=== PATIENT | female | born 1995 | race Caucasian/White ===

== ENCOUNTER 2019-03-05 15:07 | Inpatient (IN) | payer OTHER ==
[~2019-03-05] VITALS: Ht 149.9 cm; Wt 90.0 kg
[~2019-03-05 15:07] MED LIST: OXYTOCIN 30 UNITS/LR 500 ML BAG IV ONE
[2019-03-05 15:25] VITALS: Ht 149.9 cm; Wt 90.0 kg
[2019-03-05] MEDS ORDERED: METHYLERGONOVINE 0.2 MG INJ IM PRN (15:30)
[2019-03-05] MEDS ORDERED: CEFAZOLIN 2 GM/50 ML (PMX) 50 ML IVPB SCH (15:30)
[2019-03-05] MEDS ORDERED: OXYTOCIN 30 UNITS/LR 500 ML IV SCH (15:30)
[2019-03-05] MEDS ORDERED: CARBOPROST 250 MCG INJ IM PRN (15:30)
[2019-03-05] MEDS ORDERED: OXYTOCIN 30 UNITS/LR 500 ML IV PRN (15:30)
[2019-03-05] MEDS ORDERED: MISOPROSTOL 200 MCG TAB PR PRN ×2 (15:30→22:30)
[2019-03-05 15:34] VITALS: BP 118/71; PULSE 111; RESP 19
[2019-03-05] MEDS: LACTATED RINGER'S 1,000 ML IV SCH ×2 (15:47→21:29)
--- NOTE | 2019-03-05 21:35 | PREAC ---
Date/Time of Note Date/Time of Note DATE: 03/05/19 TIME: 21:34 Anesthesia Eval and Record Evaluation Time Pre-Procedure Interview DATE: 03/05/19 TIME: 21:34 Age 23 Sex female NPO: 8 hrs Preoperative diagnosis IUP Planned procedure Repeat C/Section Past Medical History Past Medical History: Includes GI: Morbid obesity : : Surgery & Anesthesia Issues No known issue Meds Anticoagulation: No Beta Anamaria within 24 hr: No Reason Beta Anamaria not given: Pt. not on B-Anamaria No Active Prescriptions or Reported Meds Current Medications Lactated Ringer's 1,000 ml @ 125 mls/hr Q8H IV Last administered on 03/05/19at 21:29; Admin Dose 125 MLS/HR; Start 03/05/19 at 15:26 Cefazolin Sodium/ Dextrose 50 ml @ 100 mls/hr ONCE IVPB ; Start 03/05/19 at 15:30 Oxytocin/Lactated Ringer's 500 ml @ 125 mls/hr POST IV ; Start 03/05/19 at 15:30 Oxytocin/Lactated Ringer's 500 ml @ 0 mls/hr ONCE PRN IV .VAGINAL BLEEDING; Start 03/05/19 at 15:30 Methylergonovine Maleate (Methergine) 0.2 mg ONCE PRN IM .VAGINAL BLEEDING; Start 03/05/19 at 15:30 Carboprost Tromethamine (Hemabate) 250 mcg ONCE PRN IM .VAGINAL BLEEDING; Start 03/05/19 at 15:30 Misoprostol (Cytotec) 1,000 mcg ONCE PRN DC .VAGINAL BLEEDING; Start 03/05/19 at 15:30 Meds reviewed: Yes Allergies Coded Allergies: No Known Allergy (Unverified , 08/31/14) Allergies Reviewed: Yes Labs/Studies Labs Reviewed: Reviewed by anesthesiologist Result Diagram: 03/05/19 1545 Laboratory Tests 03/05/19 15:45 Blood Bank Test 03/05/19 15:45 Antibody Screen NEGATIVE Blood Type O POSITIVE Rh Immune Globulin Candidate NO test: Positive Studies: ECG Pre-procedure Exam Last vitals Vital Signs Date Temp Pulse Resp B/P (MAP) Pulse Ox O2 O2 Flow FiO2 Time Delivery Rate 03/05/19 97.9 111 19 118/71 15:34 (87) Airway: Adequate mouth opening, Adequate thyromental dist Mallampati: Mallampati II Teeth: Normal Lung: Normal Heart: Normal ASA Physical Status ASA physical status: 2 Emergency: None Planned Anesthetic Neuraxial: Spinal Planned Pain Management Sub-arachniod narcotics, Parenteral pain med Pre-operative Attestations Prior to commencing anesthesia and surgery, the patient was re-evaluated, there was verification of: *The patient's identity *The results of appropriate recent lab work and preoperative vital signs *The above evaluation not changing prior to induction *Anesthetic plan, risk benefits, alternative and complications discussed with patient/family; questions answered; patient/family understands, accepts and wishes to proceed. ERIC WAGNER MD Mar 05, 2019 21:35
[2019-03-05] MEDS ORDERED: OXYTOCIN 10 UNIT INJ ONE (22:05)
[2019-03-05] MEDS ORDERED: ONDANSETRON 4 MG INJ ONE (22:05)
[2019-03-05] MEDS ORDERED: morphine SULFATE/PF (10 MG/10 ML) INJ ONE (22:05)
[2019-03-05] MEDS ORDERED: LACTATED RINGER'S 1,000 ML IV SCH (22:10)
--- NOTE | 2019-03-05 22:10 | HP ---
Date/Time of Note Date/Time of Note DATE: 03/05/19 TIME: 22:08 OB - History Hx of Present Free Text/Dictation 23 YO EAB 2 with EDC 03/11/2019 with IUP at 39.1 weeks with history of previous delivery, who desires to have repeat delivery. I discussed with the patient the risks, benefits, indications, and alternatives of procedure including but not limited to risks of infection, bleeding, damage to other organs, bowel, bladder, hernia formation, scar formation, possibility of blood transfusion, possible need for emergency hysterectomy. She was allowed to ask questions. All her questions were answered. Informed consent has been obtained. Care: Good Care Ultrasounds: Normal mid trimester US Obstetrical Complications: None Medical Complications: None Past Family/Social History * Past Medical, Surgical, Family and Obstetric Histories reviewed from chart. OB Admission Exam Vital Signs Vital Signs Vital Signs Date Temp Pulse Resp B/P (MAP) Pulse Ox O2 O2 Flow FiO2 Time Delivery Rate 03/05/19 97.9 111 19 118/71 15:34 (87) Physical Exam HEENT: WNL Heart: Rhythm Normal Lungs: Clear, Equal Abdomen: WNL Extremities: Normal Reflexes: Normal Last 72 hours Lab Results CBC & BMP 03/05/19 15:45 OB Assessment/Plan Other Assessment: IUP at 39.1 weeks h/o c/s Desires repeat c/s Plan: Section KEERTHI CLARK MD Mar 05, 2019 22:10
[2019-03-05] MEDS ORDERED: PHENYLephrine 10 MG INJ ONE (22:24)
[2019-03-05] MEDS ORDERED: NA PHOSPHATE/BIPHOS 133 ML ENEMA PR PRN (22:30)
[2019-03-05] MEDS ORDERED: OXYCODONE/ACETAMINOPHEN (5/325) TAB PO PRN ×2 (22:30)
[2019-03-05] MEDS ORDERED: KETOROLAC 30 MG INJ IV PRN (23:00)
[2019-03-05] MEDS ORDERED: DIPHENHYDRAMINE 50 MG INJ IV PRN (23:00)
[2019-03-05] MEDS ORDERED: morphine 2 MG INJ IV PRN (23:00)
[2019-03-05] MEDS ORDERED: ONDANSETRON 4 MG INJ IV PRN (23:00)
[2019-03-05] MEDS ORDERED: NALOXONE (0.4 MG/ML) INJ IV PRN (23:00)
--- NOTE | 2019-03-05 23:22 | OPR ---
Date/Time of Note Date/Time of Note DATE: 03/05/19 TIME: 23:20 Operative Report Procedure Date: Mar 05, 2019 Preoperative Diagnosis IUP at 39 weeks Desires Repeat C/S Postoperative Diagnosis same Operation/Procedure Performed Repeat Section Surgeon Peter Mandel MD [employer] Dr. Cummings Anesthesia Type: spinal Estimated Blood Loss: other (700 ml) Transfusion none Specimen none Grafts/Implants none Tubes/Drains Fung cath Complications none Pt Condition Post Procedure: stable Disposition: PACU Procedure Description The risks, benefits, indications, alternatives of procedure including, but not limited to risk of infection, bleeding, damage to other organs, bowel, bladder, hernia formation, scar formation, possibility of blood transfusions discussed with patient. She was allowed to ask questions. All her questions were answered. Informed consent was obtained. DESCRIPTION OF PROCEDURE: She was taken to the operating room. Spinal anesthesia was induced. She was prepped and draped in the usual sterile fashion. Surgical time out one. Anesthesia was tested to be adequate. With permission from anesthesiologist, a knife was used to make a Pfannenstiel skin incision. The incision was taken down in layers. The fascia was cut, undermined and from the underlying muscle using sharp and blunt dissection. All the bleeders were cauterized. Peritoneum was entered bluntly. A low transverse incision was developed over the uterus. Amniotic fluid was clear and adequate. A viable infant in vertex presentation was delivered without any difficulty. The cord was clamped and cut, handed to awaiting team. Placenta was then delivered. Uterus was exteriorized, wrapped around a moist lap. Inside uterus was cleaned using a dry lap. All residual membranes were removed. The uterine incision was then closed using #1 Monocryl in 2 layers. The uterus was inserted back inside the abdominal cavity. Irrigation was done carefully. Careful evaluation of the uterine incision revealed no further bleeding. The peritoneum and rectus muscles and fascia were evaluated. All bleeders cauterized. Peritoneum was closed using 2-0 Monocryl. At this time, the count was correct. Rectus muscle was reapproximated using 2-0 Monocryl. Rectus fascia was closed using #1 Vicryl. Subcutaneous tissue was cleaned and irrigated. All bleeders cauterized and the skin closed using Insorb. All counts correct. PETER MANDEL MD Mar 05, 2019 23:22
--- NOTE | 2019-03-05 23:41 | PAC ---
Date/Time of Note Date/Time of Note DATE: 03/05/19 TIME: 23:40 Post-Anesthesia Notes Post-Anesthesia Note Last documented vital signs Vital Signs Date Temp Pulse Resp B/P (MAP) Pulse Ox O2 O2 Flow FiO2 Time Delivery Rate 03/05/19 97.9 111 19 118/71 15:34 (87) Activity: WNL Respiratory function: WNL Cardiovascular function: WNL Mental status: Baseline Pain reasonably controlled: Yes Hydration appropriate: Yes Nausea/Vomiting absent: Yes Comments BP:122/56, P:88, Spo2;100%, T:98,8 ERIC WAGNER MD Mar 05, 2019 23:41
[2019-03-06 02:15] VITALS: BP 105/55; PULSE 101; RESP 19
[2019-03-06 03:20] VITALS: BP 101/59; PULSE 98; RESP 19
[2019-03-06] MEDS: IBUPROFEN 600 MG TAB PO SCH ×4 (06:00→18:00)
[2019-03-06 08:00] VITALS: BP 104/56; PULSE 109; RESP 16
[2019-03-06] MEDS: LANOLIN HPA 1 PKT TOP PRN (08:27)
[2019-03-06] MEDS: SENNA/DOCUSATE NA (8.6MG/50MG) TAB PO SCH ×2 (08:27→20:26)
[2019-03-06 12:00] VITALS: BP 106/53; PULSE 108; RESP 17
[2019-03-06] MEDS: LACTATED RINGER'S 1,000 ML IV SCH (12:43)
[2019-03-06 16:00] VITALS: BP 96/54; PULSE 103; RESP 18
--- NOTE | 2019-03-06 19:21 | QN ---
Documentation Comment s/p c/s Subjective: no complaint Objective: Afebrile, VSS NAD A&O Abdomen: soft, appropriate tender Incision: no sign of bleeding/infection mild lochia Extremity: 1+ edema bilaterally Assessment: S/p C/S. POD # 1 Recovering Well Plan: current care KEERTHI CLARK MD Mar 06, 2019 19:21
[2019-03-06 19:30] VITALS: BP 112/59; PULSE 112; RESP 19
[2019-03-07] VITALS: BP 102/58; PULSE 81; RESP 19
[2019-03-07 04:00] VITALS: BP 105/59; PULSE 88; RESP 20
[2019-03-07] MEDS: IBUPROFEN 600 MG TAB PO SCH ×4 (05:54→17:38)
[2019-03-07 08:52] VITALS: BP 102/58; PULSE 98; RESP 18
[2019-03-07] MEDS: SENNA/DOCUSATE NA (8.6MG/50MG) TAB PO SCH ×2 (09:09→21:00)
--- NOTE | 2019-03-07 15:46 | PN ---
Date/Time of Note Date/Time of Note DATE: 03/07/19 TIME: 15:45 OB Subjective Subjective Subjective POD#2 Patient is doing well. She denies nausea, vomiting, shortness of breath, chest pain, headache. She has been ambulating without difficulty, tolerating regular diet. Pain is well controlled on current medications OB Objective Objective Objective VS - Last 72 Hours, by Label Date Temp Pulse Resp B/P (MAP) Pulse Ox O2 O2 Flow FiO2 Time Delivery Rate 03/07/19 97.9 98 18 102/58 Room Air 08:52 (73) 03/07/19 98.1 88 20 105/59 Room Air 04:00 (74) 03/07/19 98.3 81 19 102/58 Room Air 00:00 (73) 03/06/19 98.4 112 19 112/59 97 Room Air 19:30 (76) 03/06/19 98.5 103 18 96/54 (68) 97 Room Air 16:00 03/06/19 98.3 108 17 106/53 96 Room Air 12:00 (70) 03/06/19 98.7 109 16 104/56 97 Room Air 08:00 (72) 03/06/19 97.9 98 19 101/59 95 Room Air 03:20 (73) 03/06/19 98.4 101 19 105/55 97 02:15 (72) 03/05/19 97.9 111 19 118/71 15:34 (87) General: AAO X 3, comfortable, NAD, appropriate mood and affect. ABD: +BS. Soft, non-tender. Uterus 2 cm below umbilicus Incision: Dry dressing Flank: No CVA tenderness (B/L) LE: Mild edema. No clubbing, cyanosis, thigh or calf tenderness (B/L). Homans 'sign is negative OB Assessment/Plan Other plan: 23 years old 4 para 2-0-2-2 s/p repeat delivery at 39 weeks and 1 day. POD#2 - AF, VSS - Baby is doing well, at bed side. She is bonding well - Contraception methods with R/B/A/FR discussed - Continue care - Discharge home tomorrow - Rx and instruction given - Follow up in one and 6 weeks REGINALD KENNEDY Mar 07, 2019 15:46
--- NOTE | 2019-03-07 15:47 | DS ---
Date/Time of Note Date/Time of Note DATE: 03/07/19 TIME: 15:47 Obstetrical Discharge Record Final Diagnosis Final Diagnosis: Term delivered Other Final Diagnosis 23 years old 4 para 2-0-2-2 s/p repeat delivery at 39 weeks and 1 day. POD#2. Post course was unremarkable. She is ambulating and tolerating regular diet. She is voiding without difficulty. Pain is controlled on current medication. - AF, VSS - Baby is doing well, at bed side. She is bonding well - Contraception methods with R/B/A/FR discussed - Continue care - Discharge home tomorrow - Rx and instruction given - Follow up in one and 6 weeks Section Section: Repeat Condition on Discharge Physical Assessment Last Vitals: Vital Signs Date Temp Pulse Resp B/P (MAP) Pulse Ox O2 O2 Flow FiO2 Time Delivery Rate 03/07/19 97.9 98 18 102/58 Room Air 08:52 (73) 03/06/19 97 19:30 Voiding: Yes Bowel Movement: Yes Breast: Soft, non-tender Fundus: Firm Calf Tenderness: No Patient Condition: Stable REGINALD KENNEDY Mar 07, 2019 15:47
[2019-03-07 16:00] VITALS: BP 106/62; PULSE 85; RESP 18
[2019-03-07 20:00] VITALS: BP 115/66; PULSE 105; RESP 18
[2019-03-08] MEDS: IBUPROFEN 600 MG TAB PO SCH ×3 (00:22→12:00)
[2019-03-08 04:00] VITALS: BP 110/66; PULSE 102; RESP 16
[2019-03-08 08:00] VITALS: BP 106/63; PULSE 101; RESP 20
[2019-03-08] MEDS: SENNA/DOCUSATE NA (8.6MG/50MG) TAB PO SCH (09:00)
[2019-03-08] MEDS ORDERED: MEASLES,MUMPS,RUBELLA VACCINE INJ SC* ONE (09:00)
[2019-03-08] MEDS ORDERED: DIPHTH/TET/ACEL PERTUSS (ADULT) 0.5 ML VIAL IM* ONE (09:00)
[2019-03-08] MEDS: LANOLIN HPA 1 PKT TOP PRN (09:14)
--- NOTE | 2019-03-09 14:56 | DELSUM ---
Delivery Summary A-C Datetime Report Generated by CPN: 03/09/2019 14:56 DELIVERY PERSONNEL Construction Skills Teacher: [place], [place] MATERNAL INFORMATION Delivery Anesthesia: Spinal Medications in Delivery: SEE ANESTHESIA RECORDS Delivery QBL (ml): 700 Placenta Cultured: No Maternal Complications: None LABOR SUMMARY EDC: 03/11/2019 00:00 No. Babies in Womb: 1 Attempted: No Labor Anesthesia: None LABOR INFORMATION Reason for Induction: Not Applicable Oxytocin: N/A Group B Beta Strep: Negative Antibiotics # of Doses: 1 ancef 2 gm Antibiotics Time of Last Dose: 03/05/2019 22:10 Steroids Given: None Reason Steroids Not Administered: Not Applicable MEMBRANES Membranes Rupture Method: Artificial Rupture of Membranes: 03/05/2019 22:47 Length of Rupture (hr): 0.02 Amniotic Fluid Color: Clear Amniotic Fluid Amount: Moderate Amniotic Fluid Odor: None STAGES OF LABOR Stage 3 hr: 24 Stage 3 min: 1 CSECTION DELIVERY Primary Indication: Repeat Elective Secondary Indication: N/A CSection Urgency: Non Elective CSection Incidence: Repeat Labor: No Labor Elective: Nonelective CSection Incision: Lower Uterine Transverse BABY A INFORMATION Delivery Date/Time: 03/05/2019 22:48 Method of Delivery: Born in Route : No : N/A Forceps: N/A Vacuum Extraction: N/A Shoulder Dystocia : N/A SHOULDER DYSTOCIA BABY A Delivery Date/Time: 03/05/2019 22:48 PRESENTATION/POSITION BABY A Presentation: Cephalic Cephalic Presentation: Vertex PLACENTA INFORMATION BABY A Placenta Delivery Time : 03/06/2019 22:49 Placenta Method of Delivery: Manual Removal Placenta Status: Delivered SCORES BABY A Heart Rate 1 min: >100 bpm Resp Effort 1 min: Good Cry Reflex Irritability 1 min: Cough/Sneeze/Pulls Away Muscle Tone 1 min: Active Motion Color 1 min: Blue/Pale Resuscitation Effort 1 min: Tactile Stimulation SCORE 1 MIN: 8 Heart Rate 5 min: >100 bpm Resp Effort 5 min: Good Cry Reflex Irritability 5 min: Cough/Sneeze/Pulls Away Muscle Tone 5 min: Active Motion Color 5 min: Body [place], Extremit Blue Resuscitation Effort 5 min: Tactile Stimulation SCORE 5 MIN: 9 INFORMATION BABY A Gestational Age at Delivery: 39.1 Gestational Status: Full Term- 39- 40.6 Weeks Outcome : Liveborn, with signs of life Infant Condition : Stable Sex: Female IDENTIFICATION/MEDS BABY A ID Band Number: [id number] ID Band Location: Right Leg; Left Arm Sensor Applied: Yes Sensor Number: [id number] Sensor Location : Cord Clamp Vitamin K Given : Not Given Erythromycin Given: Not Given WEIGHT/LENGTH BABY A Birthweight (gm): 3355 Weight (lb): 7 Weight (oz): 6 Length (in): 21.00 Length (cm): 53.34 CORD INFORMATION BABY A No. Cord Vessels: 3 Nuchal Cord : N/A Cord Blood Taken: Yes Infant Suction: Mouth; Nose
== END 2019-03-08 14:25 | disposition home or self-care (01) | DRG 788 ==
LOC: L-D 15:07 → PP1 03-06 02:25
PROVIDERS: ADMIT Specialist; ATTEND Specialist
PROC: 10D00Z1 Extraction of Products of Conception, Low, Open Approach (ICD-10-PCS; principal; 2019-03-05 17:00)
DX: O34.211 Maternal care for low transverse scar from previous cesarean delivery (principal); Z3A.39 39 weeks gestation of pregnancy; Z37.0 Single live birth
CPT/HCPCS: 85025; 85610; 85730; 86592; 86850; 86900; 86901; 87340; 99464; J0690; J1885; J2274; J2370; J2405; J2590; J7120